=== PATIENT | female | born 1965 | race Caucasian/White ===

== ENCOUNTER 2019-04-16 16:58 | Emergency (ER) | payer OTHER, SELFPAY ==
[2019-04-16 17:09] VITALS: BP 162/92; PULSE 91; RESP 16; TEMP 37.7; O2SAT 100
--- NOTE | 2019-04-16 18:01 | ED.GENADULT ---
HPI - General Adult General Chief complaint: Upper Respiratory Infection Stated complaint: sinus infection Time Seen by Provider: 04/16/19 18:01 Source: patient Mode of arrival: ambulatory Limitations: no limitations History of Present Illness HPI narrative: 54-year-old female patient presents to the [facility] with complaints of cold symptoms that started yesterday. Patient states mainly her symptoms is nasal congestion and pressure under the eyes. Patient states she has had a little bit of a low-grade temp. Patient states that she did get a flu shot this year. 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 Patient states she has been taking [id number] antihistamine, Flonase and Tylenol for her symptoms. Related Data Home Medications Medication Instructions Recorded Confirmed leuprolide (3 month) [Lupron Depot 11.25 mg IM [id number] 04/16/19 04/16/19 (3 month)] norethindrone acetate 5 mg PO DAILY 04/16/19 04/16/19 ranitidine HCl 300 mg PO HS 04/16/19 04/16/19 Allergies Allergy/AdvReac Type Severity Reaction Status Date / Time No Known Allergies Allergy Unverified 08/02/17 16:52 Review of Systems Review of Systems: Narrative: CONSTITUTIONAL: Positive fever, chills, denies sweats. EYES: Denies visual changes, redness, or discharge. ENT: Positive rhinorrhea, congestion, denies sore throat, or otalgia. CARDIOVASCULAR: Denies chest pain, palpitations, or edema. RESPIRATORY: Denies cough or dyspnea. GASTROINTESTINAL: Denies abdominal pain, nausea, vomiting, or diarrhea. GENITOURINARY: Denies dysuria or hematuria. SKIN: Denies rash or itching. MUSCULOSKELETAL: Denies back pain, joint pain, or myalgia. NEUROLOGIC: Denies headache, numbness, or weakness. PSYCHIATRIC: Denies anxiety or depression. PMFSH Comments At the time of my signature I agree with nursing past medical history, surgical, social, and family history. There is no relevant family history pertinent to the presenting complaint. Exam Narrative: Exam Narrative: GENERAL: Well-appearing, well-nourished, and in no acute distress. HEAD: Normocephalic, atraumatic. EYES: PERRLA and EOMI. ENT: Nares with erythema and edema noted bilaterally, no rhinorrhea or epistaxis. Mucous membranes moist. Posterior pharynx with no erythema, tonsillar margin, exudates or lesions present. Bilateral TMs are clear with no erythema or foreign bodies in the canal. NECK: Supple. No lymphadenopathy CHEST: Clear to auscultation. No respiratory distress. HEART: Regular rate and rhythm. No murmur heard. Normal peripheral pulses. ABDOMEN: Soft, nontender, nondistended, normal active bowel sounds. EXTREMITIES: Normal range of motion. No edema. SKIN: Warm, dry, no rash. NEURO: No focal deficits. Alert and oriented x3. Course Vital Signs Vital signs: Vital Signs Temperature 37.7 C H 04/16/19 17:09 Pulse Rate 91 04/16/19 17:09 Respiratory Rate 16 04/16/19 17:09 Blood Pressure 162/92 H 04/16/19 17:09 Pulse Oximetry 100 04/16/19 17:09 Temperature 37.7 C H 04/16/19 17:09 Pulse Rate 91 04/16/19 17:09 Respiratory Rate 16 04/16/19 17:09 Blood Pressure 162/92 H 04/16/19 17:09 Pulse Oximetry 100 04/16/19 17:09 Vital signs reviewed. The patient has been informed that they may have pre-hypertension or Hypertension based on a BP reading in the department. I recommend that the patient call the primary care provider listed on their discharge instructions or a physician of their choice this week to arrange follow up for further evaluation of possible pre-hypertension or Hypertension Medical Decision Making Differential Diagnosis Differential Diagnosis: Differential diagnosis: Allergic rhinitis, chronic sinusitis, tonsillitis, acute sinusitis, infectious mononucleosis, seasonal inf
== END 2019-04-16 18:10 | disposition home or self-care (01) ==
PROVIDERS: Emergency Provider Nurse Practitioner Family
DX: J10.1 Influenza due to other identified influenza virus with other respiratory manifestations (principal); J45.909 Unspecified asthma, uncomplicated
CPT/HCPCS: 87804; 99213; G0463